=== PATIENT | female | born 1970 | race American Indian/Alaskan Native ===

== ENCOUNTER 2016-07-04 19:41 | Emergency (ER) | payer BC, OTHER ==
[2016-07-04] MEDS ORDERED: DECADRON IM STA (22:09)
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
[2016-07-04] MEDS ORDERED: TORADOL IM ONE (22:10)
[2016-07-04 22:58] VITALS: BP 122/68
== END 2016-07-04 22:58 | disposition home or self-care (01) ==
LOC: ED 19:41
DX: G89.29 Other chronic pain (principal); M54.5 Low back pain; M54.16 Radiculopathy, lumbar region; M62.830 Muscle spasm of back
CPT/HCPCS: 96372; 99282; J1100; J1885